=== PATIENT | female | born 1995 | race Caucasian/White ===

== ENCOUNTER 2016-12-14 23:48 | Emergency (ER) | payer OTHER ==
[~2016-12-14 23:48] MED LIST: ACETAMINOPHEN325 MG PO; CLARITIN10 MG PO; HUMALOG100 UNIT/1 SC; LANTUS **100 UNITS/ SQ; LOVENOX40 MG/0.1 SC; PROBIOTIC1 EAC1 PO; REGLAN5 MG/ML IV; TYLENOL650 MG PR; VENTOLIN HFA IN18 GM PO
[2016-12-15 00:31] LABS: BILIRUBIN NEGATIVE (NEGATIVE); BLOOD NEGATIVE Ery/uL (NEGATIVE); CLARITY CLEAR (CLEAR); COLOR COLORLESS (YELLOW); GLUCOSE (U) 2+ mg/dL (NORMAL); KETONE (U) 3+ (LARGE) mg/dL (NEGATIVE); LEUKOCYTES NEGATIVE Leu/uL (NEGATIVE); NITRITE NEGATIVE (NEGATIVE); PROTEIN NEGATIVE (NEGATIVE); SPECIFIC GRAVITY >=1.030 (1.001-1.030); UROBILINOGEN 0.2 mg/dL (0.2-1.0)
[2016-12-15 00:45] LABS: BASOPHIL 0.9 % (0-2); EOSINOPHIL 0.3 % (0-5); HCT 38.4 % (37.0-47.0); HGB 12.7 g/dl (12.5-16.0); LYMPHOCYTE 11.1 % (15-48); MCH 27.9 pg (25.0-31.0); MCHC 33.1 g/dL (32.0-36.0); MCV 84.2 fL (78.0-100.0); MONOCYTE 10.2 % (0-12); MPV 10.9 fL (6.0-9.5); NEUTROPHIL 77.5 % (41-80); PLT 384 K/uL (150-400); RBC 4.56 M/uL (4.20-5.40); RDW 14.3 % (11.5-14.0)
[2016-12-15 01:02] LABS: ALBUMIN 4.7 g/dL (3.5-5.0); BILIRUBIN - TOTAL 0.6 mg/dL (0.1-1.0); CREATININE 0.6 mg/dL (0.5-1.0); GLOBULIN (CALCULATION) 3.1 g/dL (2.2-4.2); POTASSIUM 4.4 mmol/L (3.5-5.1); TOTAL PROTEIN 7.8 g/dL (6.4-8.3)
== END 2016-12-15 02:05 | disposition left against medical advice (07) ==
LOC: FER 23:48
PROVIDERS: Emergency Medicine Emergency Medical Services
DX: E10.10 Type 1 diabetes mellitus with ketoacidosis without coma (principal); J11.1 Influenza due to unidentified influenza virus with other respiratory manifestations; J45.909 Unspecified asthma, uncomplicated; Z88.8 Allergy status to other drugs, medicaments and biological substances; Z88.2 Allergy status to sulfonamides; Z79.4 Long term (current) use of insulin; Z82.49 Family history of ischemic heart disease and other diseases of the circulatory system
CPT/HCPCS: 36415; 36600; 71020; 80053; 81003; 82150; 82803; 83605; 83690; 84484; 85025; 87804; 87899; 93005; C9113; J1885; J2405

== ENCOUNTER 2020-11-01 00:26 | Inpatient (IN) | payer OTHER ==
[~2020-11-01 00:26] MED LIST changes: +FLEXERIL10 MG PO; +IBUPROFEN800 MG PO; +NAPROXEN500 MG PO; +NEURONTIN300 MG PO; +NORCO 5-325 TA1 EACH PO; +PEPCID AC20 MG PO; +PERCOCET 5-3251 EACH PO; +PHENERGAN12.5 M1 PO; +PHENERGAN25 M1 PO; +PREDNISONE 10MG10 MG PO; +PREDNISONE50 MG PO; +SIMVASTATIN10 MG PO; +VISTARIL25 MG PO; +ZOCOR10 MG PO
[2020-11-01 01:11] LABS: ALBUMIN 3.6 g/dL (3.4-5.0); BILIRUBIN - TOTAL 0.5 mg/dL (0.2-1.0); CREATININE 0.73 mg/dL (0.51-0.95); GLOBULIN (CALCULATION) 3.5 g/dL; POTASSIUM 5.4 mmol/L (3.5-5.1); TOTAL PROTEIN 7.1 g/dL (6.4-8.2)
[2020-11-01 02:15] LABS: BASOPHIL 0.6 % (0-2); BILIRUBIN NEGATIVE (NEGATIVE); BLOOD 2+ Ery/uL (NEGATIVE); CLARITY CLEAR (CLEAR); COLOR YELLOW (YELLOW); EOSINOPHIL 0 % (0-5); GLUCOSE (U) 3+ mg/dL (NORMAL); HCT 38.5 % (37.0-47.0); HGB 12.7 g/dl (12.5-16.0); LEUKOCYTES NEGATIVE Leu/uL (NEGATIVE); LYMPHOCYTE 23.8 % (15-48); MCH 27.9 pg (25.0-31.0); MCV 84.4 fL (78.0-100.0); MONOCYTE 11.9 % (0-12); MPV 12.2 fL (6.0-9.5); NEUTROPHIL 63.4 % (41-80); NITRITE NEGATIVE (NEGATIVE); NRBC 0; PLT 224 K/uL (150-400); PROTEIN NEGATIVE (NEGATIVE); RBC 4.56 M/uL (4.20-5.40); RDW 12.5 % (11.5-14.0); SPECIFIC GRAVITY 1.015 (1.001-1.030); UROBILINOGEN 0.2 mg/dL (0.2-1.0); WBC 6.8 K/uL (4.0-10.5); pH 5.5 (5.0-9.0)
[2020-11-01 02:18] LABS: BACTERIA TRACE
[2020-11-01 02:19] LABS: CALCIUM OXALATE CRYSTALS TRACE
[2020-11-01 02:33] LABS: LACTIC ACID 0.5 mmol/L (0.4-1.9)
[2020-11-01 03:34] LABS: CORONAVIRUS 2019 SARS-COV-2 POSITIVE (NEGATIVE); INFLUENZA A NAA NEGATIVE (NEGATIVE)
[2020-11-01 05:21] LABS: ALBUMIN 2.8 g/dL (3.4-5.0); BILIRUBIN - TOTAL 0.3 mg/dL (0.2-1.0); BUN/CREAT RATIO (CALC) 21.5 RATIO; C-REACTIVE PROTEIN 8.2 mg/dL (<=0.90); CREATININE 0.65 mg/dL (0.51-0.95); GLOBULIN (CALCULATION) 3.3 g/dL; TOTAL PROTEIN 6.1 g/dL (6.4-8.2)
[2020-11-01 05:24] LABS: POTASSIUM 3.6 mmol/L (3.5-5.1)
[2020-11-01] MEDS ORDERED: ADMELOG100 UNIT/1 SC (05:36)
[2020-11-01] MEDS ORDERED: ORILISSA150 MG PO (05:39)
[2020-11-01] MEDS ORDERED: [UNRECOGNIZED DRUG - OTHER] SC (05:45)
[2020-11-01 09:46] LABS: BUN/CREAT RATIO (CALC) 18.9 RATIO; CREATININE 0.53 mg/dL (0.51-0.95); MAGNESIUM 1.6 mg/dL (1.8-2.4); PHOSPHORUS 3.1 mg/dL (2.6-4.7); POTASSIUM 3.7 mmol/L (3.5-5.1)
[2020-11-02] MEDS ORDERED: IBUPROFEN800 MG PO (09:42)
[2020-11-02] MEDS ORDERED: COMPAZINE5 MG PO (09:42)
== END 2020-11-02 10:37 | disposition home or self-care (01) | DRG 177 ==
LOC: FER 00:26 → FICU 03:24 → FMS 10:17
PROVIDERS: Emergency Medicine; Nurse Practitioner; ADMIT Internal Medicine
PROC: 8E0ZXY6 Isolation (ICD-10-PCS; principal; 2020-11-01)
DX: U07.1 COVID-19 (principal); E10.10 Type 1 diabetes mellitus with ketoacidosis without coma; N80.9 Endometriosis, unspecified; R01.1 Cardiac murmur, unspecified; Z79.4 Long term (current) use of insulin; Z88.1 Allergy status to other antibiotic agents; Z88.8 Allergy status to other drugs, medicaments and biological substances
CPT/HCPCS: 36415; 36600; 71045; 80048; 80053; 81001; 82009; 82728; 82803; 82962; 83036; 83605; 83735; 84100; 84145; 85025; 86140; 93005; 96374; J1650; J1885; J3475; J3480; J7030; U0002

== ENCOUNTER 2021-01-28 02:35 | Emergency (ER) | payer OTHER ==
[~2021-01-28 02:35] MED LIST changes: +ADMELOG100 UNIT/1 SC; +COMPAZINE5 MG PO; +ORILISSA150 MG PO; +[UNRECOGNIZED DRUG - OTHER] SC
[2021-01-28 03:10] LABS: BASOPHIL 0.7 % (0-2); EOSINOPHIL 1.9 % (0-5); HCT 39.4 % (37.0-47.0); HGB 13.3 g/dl (12.5-16.0); LYMPHOCYTE 33.9 % (15-48); MCH 28.7 pg (25.0-31.0); MCHC 33.8 g/dL (32.0-36.0); MCV 85.1 fL (78.0-100.0); MONOCYTE 3.6 % (0-12); MPV 11.4 fL (6.0-9.5); NEUTROPHIL 58.8 % (41-80); NRBC 0; PLT 346 K/uL (150-400); RBC 4.63 M/uL (4.20-5.40); RDW 12.4 % (11.5-14.0); WBC 7.5 K/uL (4.0-10.5)
[2021-01-28 03:17] LABS: ALBUMIN 4.2 g/dL (3.4-5.0); BILIRUBIN - TOTAL 0.6 mg/dL (0.2-1.0); BUN/CREAT RATIO (CALC) 15.8 RATIO; CREATININE 0.76 mg/dL (0.51-0.95); GLOBULIN (CALCULATION) 3.9 g/dL; POTASSIUM 3.9 mmol/L (3.5-5.1); TOTAL PROTEIN 8.1 g/dL (6.4-8.2)
[2021-01-28 03:28] LABS: AMPHETAMINES NEGATIVE (NEGATIVE); BARBITURATES NEGATIVE (NEGATIVE); ECSTASY (MDMA) NEGATIVE (NEGATIVE); MARIJUANA (THC) NEGATIVE (NEGATIVE); METHADONE NEGATIVE (NEGATIVE); OPIATES NEGATIVE (NEGATIVE); OXYCODONE NEGATIVE (NEGATIVE)
[2021-01-28 03:29] LABS: BILIRUBIN NEGATIVE (NEGATIVE); BLOOD NEGATIVE Ery/uL (NEGATIVE); CLARITY CLEAR (CLEAR); COLOR YELLOW (YELLOW); GLUCOSE (U) 3+ mg/dL (NORMAL); LEUKOCYTES NEGATIVE Leu/uL (NEGATIVE); NITRITE NEGATIVE (NEGATIVE); PROTEIN NEGATIVE (NEGATIVE); SPECIFIC GRAVITY <=1.005 (1.001-1.030); UROBILINOGEN 0.2 mg/dL (0.2-1.0)
== END 2021-01-28 06:02 ==
LOC: FER 02:35
PROVIDERS: Emergency Medicine Emergency Medical Services
DX: E10.65 Type 1 diabetes mellitus with hyperglycemia (principal); F10.129 Alcohol abuse with intoxication, unspecified; J45.909 Unspecified asthma, uncomplicated; Z88.2 Allergy status to sulfonamides; Z88.1 Allergy status to other antibiotic agents; Z88.8 Allergy status to other drugs, medicaments and biological substances; Z87.42 Personal history of other diseases of the female genital tract; Y90.6 Blood alcohol level of 120-199 mg/100 ml
CPT/HCPCS: 36415; 36600; 80053; 80305; 81003; 82009; 82803; 85025; G0480; J2060; J7030

== ENCOUNTER 2021-02-06 13:06 | Inpatient (IN) | payer OTHER ==
[2021-02-06 14:14] LABS: BASOPHIL 0.6 % (0-2); EOSINOPHIL 0.1 % (0-5); HCT 47.2 % (37.0-47.0); HGB 15.5 g/dl (12.5-16.0); LYMPHOCYTE 15.1 % (15-48); MCH 29.2 pg (25.0-31.0); MCHC 32.8 g/dL (32.0-36.0); MCV 89.1 fL (78.0-100.0); MONOCYTE 4.2 % (0-12); MPV 11.9 fL (6.0-9.5); NEUTROPHIL 79.4 % (41-80); NRBC 0; PLT 337 K/uL (150-400); RDW 13.1 % (11.5-14.0); WBC 11.1 K/uL (4.0-10.5)
[2021-02-06 14:33] LABS: BILIRUBIN 1+ mg/dL (NEGATIVE); BLOOD NEGATIVE Ery/uL (NEGATIVE); COLOR YELLOW (YELLOW); GLUCOSE (U) 2+ mg/dL (NORMAL); LEUKOCYTES NEGATIVE Leu/uL (NEGATIVE); NITRITE NEGATIVE (NEGATIVE); PROTEIN 1+ mg/dL (NEGATIVE); SPECIFIC GRAVITY >=1.030 (1.001-1.030); UROBILINOGEN 0.2 mg/dL (0.2-1.0); pH 5.5 (5.0-9.0)
[2021-02-06 14:45] LABS: CLARITY HAZY (CLEAR)
[2021-02-06 14:46] LABS: BACTERIA TRACE; SQUAMOUS EPITHELIAL CELLS 20-50; URINARY WBC RARE
[2021-02-06 14:54] LABS: ALBUMIN 4.4 g/dL (3.4-5.0); ALKALINE PHOSHATASE 112 U/L (46-116); ALT 19 U/L (14-59); AST 20 U/L (15-37); BUN 18 mg/dL (7-18); BUN/CREAT RATIO (CALC) 24.7 RATIO; CHLORIDE 95 mmol/L (98-107); CO2 (BICARBONATE) < 5 mmol/L (21-32); CREATININE 0.73 mg/dL (0.51-0.95); GLOBULIN (CALCULATION) 4.5 g/dL; LIPASE 16 U/L (73-393); POTASSIUM 4.8 mmol/L (3.5-5.1); TOTAL PROTEIN 8.9 g/dL (6.4-8.2)
[2021-02-06 14:58] LABS: GLUCOSE 512 mg/dL (74-106)
[2021-02-06] MEDS ORDERED: TRESIBA FL100 UNIT/1 SC (16:42)
[2021-02-06 18:19] LABS: BUN/CREAT RATIO (CALC) 19.7 RATIO; CREATININE 0.66 mg/dL (0.51-0.95); MAGNESIUM 1.6 mg/dL (1.8-2.4); PHOSPHORUS 1.7 mg/dL (2.6-4.7); POTASSIUM 3.8 mmol/L (3.5-5.1)
--- NOTE | 2021-02-06 19:42 | NUR ---
1730 C[address] LINE PLACED BY DR LOLITA PALMER.
[2021-02-07 00:14] LABS: BUN/CREAT RATIO (CALC) 13.8 RATIO; CREATININE 0.65 mg/dL (0.51-0.95); POTASSIUM 3.9 mmol/L (3.5-5.1)
[2021-02-07 02:44] LABS: BUN/CREAT RATIO (CALC) 13.1 RATIO; CREATININE 0.61 mg/dL (0.51-0.95); POTASSIUM 3.6 mmol/L (3.5-5.1)
[2021-02-07 06:42] LABS: BUN/CREAT RATIO (CALC) 14.8 RATIO; CREATININE 0.61 mg/dL (0.51-0.95); PHOSPHORUS 1.8 mg/dL (2.6-4.7); POTASSIUM 3.7 mmol/L (3.5-5.1)
[2021-02-07 06:44] LABS: MAGNESIUM 2.1 mg/dL (1.8-2.4)
[2021-02-07 10:24] LABS: HCG (URINE) SCREEN NEGATIVE (NEGATIVE)
--- NOTE | 2021-02-07 13:07 | NUR ---
Report given to LYRIC Padilla. Pt alert and oriented, states she is experiencing pain in her right chest area. Describes the pain as sharp and states that the dilauid takes the pain away. Dr. Murphy notiifed, Valerie also aware. No new orders per Dr. Murphy. Transferring pt at this time.
[2021-02-08 04:25] LABS: BASOPHIL 0.3 % (0-2); EOSINOPHIL 3.2 % (0-5); LYMPHOCYTE 59.4 % (15-48); MCH 28.7 pg (25.0-31.0); MCHC 33.8 g/dL (32.0-36.0); MCV 85.1 fL (78.0-100.0); MONOCYTE 6.1 % (0-12); MPV 11.3 fL (6.0-9.5); NEUTROPHIL 30.8 % (41-80); NRBC 0; PLT 204 K/uL (150-400); RBC 3.76 M/uL (4.20-5.40); RDW 13.2 % (11.5-14.0); WBC 6.6 K/uL (4.0-10.5)
[2021-02-08 04:33] LABS: CREATININE 0.46 mg/dL (0.51-0.95); MAGNESIUM 1.7 mg/dL (1.8-2.4); POTASSIUM 2.9 mmol/L (3.5-5.1)
[2021-02-08 04:34] LABS: HGB 10.8 g/dl (12.5-16.0)
[2021-02-08] MEDS ORDERED: PERCOCET 5-3251 EACH PO (14:30)
[2021-02-08] MEDS ORDERED: COMPAZINE10 MG PO (14:30)
[2021-02-08] MEDS ORDERED: PROTONIX 40MG T40 MG PO (15:21)
--- NOTE | 2021-02-08 17:14 | NUR ---
@1630 RIGHT IJ REMOVED PER PROTOCAL. SUTURES REMOVED DSG APPLIED WITH PRESSURE. PT TOLERATED WELL.
== END 2021-02-08 17:00 | disposition home or self-care (01) | DRG 639 ==
LOC: FER 13:06 → FICU 15:18 → FMS 02-07 09:36
PROVIDERS: Internal Medicine; ADMIT Internal Medicine
PROC: 02HV33Z Insertion of Infusion Device into Superior Vena Cava, Percutaneous Approach (ICD-10-PCS; principal; 2021-02-06)
DX: E10.10 Type 1 diabetes mellitus with ketoacidosis without coma (principal); Z20.822 Contact with and (suspected) exposure to COVID-19; E87.6 Hypokalemia; E83.42 Hypomagnesemia; E83.39 Other disorders of phosphorus metabolism; R10.9 Unspecified abdominal pain; R07.9 Chest pain, unspecified; J45.909 Unspecified asthma, uncomplicated; Z88.2 Allergy status to sulfonamides; Z88.1 Allergy status to other antibiotic agents; Z88.8 Allergy status to other drugs, medicaments and biological substances; Z98.890 Other specified postprocedural states
CPT/HCPCS: 36415; 36600; 71045; 71250; 74022; 76700; 80048; 80053; 81001; 82009; 82803; 82962; 83036; 83690; 83735; 84100; 84703; 85025; 86140; 94640; C9113; J1170; J1650; J1885; J2550; J3475; J3480; J7030; J7050; U0002

== ENCOUNTER 2021-03-22 23:57 | Emergency (ER) | payer OTHER ==
[~2021-03-22 23:57] MED LIST changes: +COMPAZINE10 MG PO; +PROTONIX 40MG T40 MG PO; +TRESIBA FL100 UNIT/1 SC
[2021-03-23 03:51] LABS: BASOPHIL 0.5 % (0-2); EOSINOPHIL 3.2 % (0-5); HCT 35.5 % (37.0-47.0); HGB 12.2 g/dl (12.5-16.0); LYMPHOCYTE 27.4 % (15-48); MCH 29.1 pg (25.0-31.0); MCHC 34.4 g/dL (32.0-36.0); MCV 84.7 fL (78.0-100.0); MONOCYTE 7.8 % (0-12); MPV 11.4 fL (6.0-9.5); NEUTROPHIL 60.6 % (41-80); NRBC 0; PLT 245 K/uL (150-400); RBC 4.19 M/uL (4.20-5.40); RDW 12.9 % (11.5-14.0); WBC 11.3 K/uL (4.0-10.5)
[2021-03-23 04:17] LABS: CREATININE 0.6 mg/dL (0.51-0.95); POTASSIUM 3.6 mmol/L (3.5-5.1)
[2021-03-23] MEDS ORDERED: LEVAQUIN750 MG PO (07:17)
[2021-03-23] MEDS ORDERED: OFLOXACIN5 M1 AU (07:17)
== END 2021-03-23 07:42 | disposition home or self-care (01) ==
LOC: FER 23:57
PROVIDERS: Emergency Medicine
DX: H70.92 Unspecified mastoiditis, left ear (principal); H60.92 Unspecified otitis externa, left ear; E10.9 Type 1 diabetes mellitus without complications; J45.909 Unspecified asthma, uncomplicated; Z87.891 Personal history of nicotine dependence; Z88.2 Allergy status to sulfonamides; Z88.1 Allergy status to other antibiotic agents; Z88.8 Allergy status to other drugs, medicaments and biological substances
CPT/HCPCS: 36415; 70491; 80048; 85025; Q9967

== ENCOUNTER 2021-04-26 13:19 | Emergency (ER) | payer OTHER ==
[~2021-04-26 13:19] MED LIST changes: +LEVAQUIN750 MG PO; +OFLOXACIN5 M1 AU
== END 2021-04-26 15:21 | disposition home or self-care (01) ==
LOC: FER 13:19
DX: S66.911A Strain of unspecified muscle, fascia and tendon at wrist and hand level, right hand, initial encounter (principal); E10.9 Type 1 diabetes mellitus without complications; Z88.2 Allergy status to sulfonamides; Z88.1 Allergy status to other antibiotic agents; Z88.8 Allergy status to other drugs, medicaments and biological substances; Y04.0XXA Assault by unarmed brawl or fight, initial encounter; Y92.838 Other recreation area as the place of occurrence of the external cause
CPT/HCPCS: 73130

== ENCOUNTER 2021-10-05 23:06 | Emergency (ER) | payer OTHER | END 2021-10-06 04:05 | disposition home or self-care (01) | LOC: FER 23:06 | DX: M25.522 Pain in left elbow (principal); E11.9 Type 2 diabetes mellitus without complications; J45.909 Unspecified asthma, uncomplicated; Z88.1 Allergy status to other antibiotic agents; Z88.8 Allergy status to other drugs, medicaments and biological substances; Z79.4 Long term (current) use of insulin; Y04.0XXA Assault by unarmed brawl or fight, initial encounter | CPT/HCPCS: 73080 ==

== ENCOUNTER 2021-10-20 13:50 | Emergency (ER) | payer OTHER ==
[2021-10-20 16:06] LABS: BASOPHIL 0.6 % (0-2); EOSINOPHIL 0.6 % (0-5); HCT 42.3 % (37.0-47.0); LYMPHOCYTE 20.4 % (15-48); MCH 28.1 pg (25.0-31.0); MCHC 33.1 g/dL (32.0-36.0); MCV 84.9 fL (78.0-100.0); MONOCYTE 3.8 % (0-12); MPV 11.7 fL (6.0-9.5); NEUTROPHIL 74.1 % (41-80); NRBC 0; PLT 267 K/uL (150-400); RBC 4.98 M/uL (4.20-5.40); RDW 12.6 % (11.5-14.0); WBC 8.1 K/uL (4.0-10.5)
[2021-10-20 16:29] LABS: BUN/CREAT RATIO (CALC) 15.8 RATIO; CREATININE 0.95 mg/dL (0.51-0.95); POTASSIUM 4.3 mmol/L (3.5-5.1)
[2021-10-20 16:54] LABS: CORONAVIRUS 2019 SARS-COV-2 NEGATIVE (NEGATIVE); INFLUENZA A NAA NEGATIVE (NEGATIVE)
[2021-10-20] MEDS ORDERED: VENTOLIN HFA IN18 GM INH (18:58)
[2021-10-20] MEDS ORDERED: ONDANSETRON ODT4 MG PO (19:04)
== END 2021-10-20 19:44 | disposition home or self-care (01) ==
LOC: FER 13:50
PROVIDERS: Nurse Practitioner Family
DX: B34.9 Viral infection, unspecified (principal); E10.9 Type 1 diabetes mellitus without complications; J45.909 Unspecified asthma, uncomplicated; Z20.822 Contact with and (suspected) exposure to COVID-19; Z88.1 Allergy status to other antibiotic agents; Z88.8 Allergy status to other drugs, medicaments and biological substances; Z91.09 Other allergy status, other than to drugs and biological substances
CPT/HCPCS: 36415; 36600; 71045; 80048; 82009; 82803; 85025; J2405; J7030; U0002

== ENCOUNTER 2022-01-09 21:57 | Emergency (ER) | payer OTHER ==
[~2022-01-09 21:57] MED LIST changes: +ONDANSETRON ODT4 MG PO; +VENTOLIN HFA IN18 GM INH
[2022-01-09 23:48] LABS: BASOPHIL 0.7 % (0-2); EOSINOPHIL 1.6 % (0-5); HCT 39.4 % (37.0-47.0); HGB 12.9 g/dl (12.5-16.0); MCH 28.3 pg (25.0-31.0); MCHC 32.7 g/dL (32.0-36.0); MCV 86.4 fL (78.0-100.0); MONOCYTE 5.2 % (0-12); MPV 11.3 fL (6.0-9.5); NEUTROPHIL 66.9 % (41-80); NRBC 0; PLT 346 K/uL (150-400); RBC 4.56 M/uL (4.20-5.40); RDW 12.8 % (11.5-14.0); WBC 10.4 K/uL (4.0-10.5)
[2022-01-10 00:08] LABS: LACTIC ACID 1.6 mmol/L (0.4-1.9)
[2022-01-10 00:20] LABS: BUN/CREAT RATIO (CALC) 18.8 RATIO; CREATININE 0.48 mg/dL (0.51-0.95)
[2022-01-10 00:39] LABS: POTASSIUM 4.2 mmol/L (3.5-5.1)
[2022-01-10] MEDS ORDERED: PERCOCET 5-3251 EACH PO (02:05)
== END 2022-01-10 02:18 | disposition home or self-care (01) ==
LOC: FER 21:57
PROVIDERS: Internal Medicine
DX: H60.12 Cellulitis of left external ear (principal); E11.9 Type 2 diabetes mellitus without complications; Z79.4 Long term (current) use of insulin; Z88.8 Allergy status to other drugs, medicaments and biological substances; Z88.2 Allergy status to sulfonamides; Z88.1 Allergy status to other antibiotic agents; Z91.048 Other nonmedicinal substance allergy status; Z28.310 Unvaccinated for COVID-19
CPT/HCPCS: 36415; 70486; 80048; 83605; 84145; 85025; 87040; J1170; J2405; J2543; J7030

== ENCOUNTER 2022-05-31 16:34 | Emergency (ER) | payer OTHER ==
[2022-05-31 17:51] LABS: BASOPHIL 1.2 % (0-2); EOSINOPHIL 1.2 % (0-5); HGB 13.3 g/dl (12.5-16.0); LYMPHOCYTE 55.5 % (15-48); MCH 27.9 pg (25.0-31.0); MCHC 33.3 g/dL (32.0-36.0); MCV 83.9 fL (78.0-100.0); MONOCYTE 5.2 % (0-12); MPV 10.1 fL (6.0-9.5); NEUTROPHIL 36.7 % (41-80); NRBC 0; PLT 339 K/uL (150-400); RBC 4.77 M/uL (4.20-5.40); RDW 13.6 % (11.5-14.0)
[2022-05-31 18:38] LABS: BILIRUBIN 1+ mg/dL (NEGATIVE); BLOOD TRACE-INTACT Ery/uL (NEGATIVE); CLARITY CLEAR (CLEAR); COLOR YELLOW (YELLOW); GLUCOSE (U) 3+ mg/dL (NORMAL); LEUKOCYTES NEGATIVE Leu/uL (NEGATIVE); NITRITE NEGATIVE (NEGATIVE); PROTEIN NEGATIVE (NEGATIVE); SPECIFIC GRAVITY 1.015 (1.001-1.030); UROBILINOGEN 0.2 mg/dL (0.2-1.0)
[2022-05-31 19:05] LABS: MUCOUS MODERATE
[2022-05-31 19:08] LABS: BUN/CREAT RATIO (CALC) 22.4 RATIO; CREATININE 0.58 mg/dL (0.51-0.95); POTASSIUM 4.1 mmol/L (3.5-5.1)
[2022-05-31] MEDS ORDERED: ONDANSETRON ODT4 MG PO (22:46)
[2022-05-31] MEDS ORDERED: NORCO 5-325 TA1 EACH PO (22:46)
[2022-06-02 22:06] LABS: CHLAMYDIA TRACHOMATIS, NAA Negative (Negative); NEISSERIA GONORRHOEAE, NAA Negative (Negative)
== END 2022-05-31 23:30 | disposition home or self-care (01) ==
LOC: FER 16:34
PROVIDERS: Nurse Practitioner Family
DX: N83.202 Unspecified ovarian cyst, left side (principal); N83.201 Unspecified ovarian cyst, right side; E11.9 Type 2 diabetes mellitus without complications; Z28.310 Unvaccinated for COVID-19; Z88.1 Allergy status to other antibiotic agents; Z88.8 Allergy status to other drugs, medicaments and biological substances
CPT/HCPCS: 36415; 76830; 80048; 81001; 85025; 87491; 87591; J1170; J1885; J2270; J2405; J7030